=== PATIENT | female | born 1970 | race Two or more races ===

== ENCOUNTER 2017-05-25 15:39 | Emergency (ER) | payer OTHER ==
[~2017-05-25] VITALS: Ht 160 cm; Wt 61.2 kg
[2017-05-25] MEDS ORDERED: HYDROCODONE/APAP 5/325MG 1 EACH TABLET PO ONE (16:00)
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
[2017-05-25] MEDS ORDERED: HYDROCODONE/APAP 5/325MG 1 EACH TABLET ONE (16:11)
--- NOTE | 2017-05-25 16:15 | NUR ---
PT MEDICATED ORDERED.
[2017-05-25 17:07] VITALS: BP 110/70
== END 2017-05-25 17:17 | disposition home or self-care (01) ==
LOC: ER 15:40
DX: S16.1XXA Strain of muscle, fascia and tendon at neck level, initial encounter (principal); S39.012A Strain of muscle, fascia and tendon of lower back, initial encounter; S43.402A Unspecified sprain of left shoulder joint, initial encounter; R10.9 Unspecified abdominal pain; N93.9 Abnormal uterine and vaginal bleeding, unspecified; Z85.42 Personal history of malignant neoplasm of other parts of uterus; V89.2XXA Person injured in unspecified motor-vehicle accident, traffic, initial encounter; Y93.89 Activity, other specified; Y92.89 Other specified places as the place of occurrence of the external cause; Y99.8 Other external cause status
CPT/HCPCS: 71010; 73030; 99284; A4606; Z7610